=== PATIENT | female | born 1985 | race Caucasian/White ===

== ENCOUNTER → 2021-03-08 | Outpatient (CLI) | payer OTHER ==
[~2021-03-08] MED LIST: MOTRIN 600600 MG/TAB PO; NO HOME MEDICATIONS; PERCOCET 325 MG1 TA2 PO; PRENATAL TABLET PO
== END ==
LOC: DIA.ED
DX: O24.419 Gestational diabetes mellitus in pregnancy, unspecified control (principal)
CPT/HCPCS: G0108

== ENCOUNTER → 2021-03-15 | Outpatient (CLI) | payer OTHER | LOC: DIA.ED 08:41 | DX: O24.419 Gestational diabetes mellitus in pregnancy, unspecified control (principal) | CPT/HCPCS: G0108 ==

== ENCOUNTER 2021-03-30 10:59 | Inpatient (IN) | payer OTHER ==
[~2021-03-30] VITALS: Ht 165.1 cm; Wt 85.5 kg
[2021-03-30] VITALS (21 sets, daily range): BP systolic 100–122; BP diastolic 46–78; PULSE 70–91; TEMP 98.2–98.7
[~2021-03-30 10:59] MED LIST changes: -MOTRIN 600600 MG/TAB PO; -PERCOCET 325 MG1 TA2 PO; -PRENATAL TABLET PO
[2021-03-30 11:58] LABS: BASO % 0.3 % (0.0-2.0); EOS # 0.1 (0.0-0.7); EOS % 0.8 % (0-4.0); GRAN # 4.5 (1.4-6.5); GRAN % 70.5 % (42.2-75.2); HEMOGLOBIN 10.7 g/dl (12.5-16.0); LYMPH # 1.2 (1.2-3.4); LYMPH % 18.7 % (20.0-51.0); MEAN CELL VOLUME 91 fl (80.0-100.0); MEAN CORPUSCULAR HEMOGLOBIN 30 pg (27.0-31.0); MEAN CORPUSCULAR HGB CONC 33 g/dl (33.0-37.0); MEAN PLATELET VOLUME 11.8 fl (7.4-10.4); MONO # 0.6 (0.1-0.6); MONO % 8.8 % (1.7-9.3); PLATELET COUNT 173 K/mm3 (130-400); RED BLOOD COUNT 3.55 M/mm3 (4.10-5.30); REDCELL DISTRIBUTION WIDTH-CV 14.1 % (11.5-14.5)
--- NOTE | 2021-03-30 11:58 | NUR ---
[id number] PATIENT HERE FROM COMPLAINTS OF LARGE GUSH OF FLUID THIS MORNING AT AROUND 0930. NO CONTRACTIONS FELT AT THIS TIME. EFM ON FHT 120 BABY VERY ACTIVE. SVE 0/50/-2 MODERATE AMOUNT OF CLEAR FLUID NOTED TO GLOVE WITH EXAM. AMNIOTRACE POSITIVE. DR ESCALANTE CALLED AND UPDATED. ORDERS TO ADMIT FOR REPEAT C SECTION AT 1330.
[2021-03-30 12:00] LABS: HEMATOCRIT 32.4 % (37.0-47.0)
[2021-03-30] MEDS ORDERED: PRENATAL TABLET PO (12:15)
[2021-03-31 00:15] VITALS: BP 104/56; PULSE 76; TEMP 98
[2021-03-31 03:45] VITALS: BP 103/55; PULSE 79; TEMP 98.9
[2021-03-31 08:24] VITALS: BP 109/58; PULSE 78; TEMP 98.2
--- NOTE | 2021-03-31 12:51 | NUR ---
[employer] offered congrats to patient while family was in room.
[2021-03-31 16:10] VITALS: BP 97/62; PULSE 69; TEMP 98.6
[2021-03-31 20:00] VITALS: BP 106/57; PULSE 79; TEMP 98.1
[2021-04-01] MEDS ORDERED: PERCOCET 325 MG1 TA2 PO (08:40)
[2021-04-01] MEDS ORDERED: MOTRIN 600600 MG/TAB PO (08:40)
[2021-04-01 09:15] VITALS: BP 117/64; PULSE 89; TEMP 97.8
--- NOTE | 2021-04-01 12:30 | NUR ---
Discharge instructions reviewed with pt and at the bedside. Both verbalized an understanding, agreed with the plan and state no questions or concerns at this time.
--- NOTE | 2021-04-01 13:00 | NUR ---
Pt discharged home with in rear facing car seat. Transported home via private vehicle.
== END 2021-04-01 13:00 | disposition home or self-care (01) | DRG 788 ==
LOC: LDRO 10:59 → LDR 11:24 → OB 14:33
PROVIDERS: ADMIT Obstetrics & Gynecology
PROC: 10D00Z1 Extraction of Products of Conception, Low, Open Approach (ICD-10-PCS; principal; 2021-03-30)
DX: O34.211 Maternal care for low transverse scar from previous cesarean delivery (principal); O24.420 Gestational diabetes mellitus in childbirth, diet controlled; O99.02 Anemia complicating childbirth; D64.9 Anemia, unspecified; Z3A.36 36 weeks gestation of pregnancy; Z37.0 Single live birth
CPT/HCPCS: J0690; J1100; J1885; J2370; J2405; J2590; J7120